=== PATIENT | female | born 2000 | race Caucasian/White ===

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

== ENCOUNTER → 2018-01-05 | Outpatient (CLI) | payer OTHER | END | disposition home or self-care (01) | LOC: PPH VACUNA 14:29 | DX: Z23 Encounter for immunization (principal) ==

== ENCOUNTER → 2018-01-17 06:58 | Outpatient (CLI) | payer OTHER | END | disposition home or self-care (01) | LOC: LAB 06:58 | DX: E55.9 Vitamin D deficiency, unspecified (principal); B27.00 Gammaherpesviral mononucleosis without complication; G44.221 Chronic tension-type headache, intractable; D69.6 Thrombocytopenia, unspecified; I73.00 Raynaud's syndrome without gangrene; R42 Dizziness and giddiness; M35.9 Systemic involvement of connective tissue, unspecified ==

== ENCOUNTER 2018-01-23 10:18 | Outpatient (CLI) | payer OTHER | END 2018-01-23 14:06 | disposition home or self-care (01) | LOC: NUCLEAR 10:18 | DX: I73.00 Raynaud's syndrome without gangrene (principal) ==

== ENCOUNTER 2018-01-30 00:40 | Emergency (ER) | payer OTHER ==
[~2018-01-30] VITALS: Ht 160 cm; Wt 61.2 kg
[2018-01-30] MEDS ORDERED: CEFUROXIME500 MG PO (04:45)
== END 2018-01-30 04:47 | disposition home or self-care (01) ==
LOC: ER 00:40
DX: R53.81 Other malaise (principal); N39.0 Urinary tract infection, site not specified

== ENCOUNTER 2018-07-27 15:56 | Emergency (ER) | payer OTHER ==
[~2018-07-27] VITALS: Ht 157.5 cm; Wt 61.2 kg
[~2018-07-27 15:56] MED LIST changes: +CEFUROXIME500 MG PO
[2018-07-27] MEDS ORDERED: ZYRTEC10 MG PO (19:13)
[2018-07-27] MEDS ORDERED: KETO10TA2 PO (19:13)
[2018-07-27] MEDS ORDERED: FLONASE ALLERG9.9 ML NASAL (19:13)
[2018-07-27] MEDS ORDERED: ZITHROMAX TRI-500 MG PO (19:13)
== END 2018-07-27 19:49 | disposition home or self-care (01) ==
LOC: ER 15:56
DX: J32.8 Other chronic sinusitis (principal); R51 Headache

== ENCOUNTER 2018-09-04 00:31 | Emergency (ER) | payer OTHER ==
[~2018-09-04] VITALS: Ht 160 cm; Wt 61.2 kg
[~2018-09-04 00:31] MED LIST changes: +FLONASE ALLERG9.9 ML NASAL; +KETO10TA2 PO; +ZITHROMAX TRI-500 MG PO; +ZYRTEC10 MG PO
[2018-09-04] MEDS ORDERED: DUI500 PO (03:24)
[2018-09-04] MEDS ORDERED: KETO10TA2 PO (03:24)
== END 2018-09-04 03:30 ==
LOC: ER 00:31
DX: S01.01XA Laceration without foreign body of scalp, initial encounter (principal); W01.0XXA Fall on same level from slipping, tripping and stumbling without subsequent striking against object, initial encounter; Y93.89 Activity, other specified; Y92.89 Other specified places as the place of occurrence of the external cause; Y99.8 Other external cause status

== ENCOUNTER → 2018-11-28 | Emergency (ER) | payer OTHER ==
[~2018-11-28] VITALS: Ht 160 cm; Wt 56.7 kg
[~2018-11-28] MED LIST changes: +DUI500 PO
== END | disposition home or self-care (01) ==
LOC: ER 14:27
DX: B34.9 Viral infection, unspecified (principal); B96.0 Mycoplasma pneumoniae [M. pneumoniae] as the cause of diseases classified elsewhere; Z33.1 Pregnant state, incidental

== ENCOUNTER 2018-12-12 07:57 | Outpatient (CLI) | payer OTHER | END 2018-12-12 08:03 | disposition home or self-care (01) | LOC: LAB 07:57 | DX: J20.0 Acute bronchitis due to Mycoplasma pneumoniae (principal); Z11.4 Encounter for screening for human immunodeficiency virus [HIV]; B96.89 Other specified bacterial agents as the cause of diseases classified elsewhere; R52 Pain, unspecified; R51 Headache; J10.00 Influenza due to other identified influenza virus with unspecified type of pneumonia; Z13.0 Encounter for screening for diseases of the blood and blood-forming organs and certain disorders involving the immune mechanism ==

== ENCOUNTER 2019-02-06 13:35 | Outpatient (CLI) | payer OTHER | END 2019-02-06 13:50 | disposition home or self-care (01) | LOC: LAB 13:35 | DX: O09.892 Supervision of other high risk pregnancies, second trimester (principal); Z31.430 Encounter of female for testing for genetic disease carrier status for procreative management; Z31.5 Encounter for procreative genetic counseling ==

== ENCOUNTER 2019-02-14 08:07 | Outpatient (CLI) | payer OTHER | END 2019-02-14 08:12 | disposition home or self-care (01) | LOC: LAB 08:07 | DX: D68.8 Other specified coagulation defects (principal); O09.892 Supervision of other high risk pregnancies, second trimester; Z31.430 Encounter of female for testing for genetic disease carrier status for procreative management; Z31.5 Encounter for procreative genetic counseling; D69.6 Thrombocytopenia, unspecified ==

== ENCOUNTER → 2019-03-09 | Outpatient (CLI) | payer OTHER | END | disposition home or self-care (01) | LOC: SONOGRAMA 11:07 | DX: Z34.02 Encounter for supervision of normal first pregnancy, second trimester (principal); Z3A.19 19 weeks gestation of pregnancy ==

== ENCOUNTER 2019-04-17 07:41 | Outpatient (CLI) | payer OTHER | END 2019-04-17 07:48 | disposition home or self-care (01) | LOC: LAB 07:41 | DX: J20.8 Acute bronchitis due to other specified organisms (principal); R51 Headache; J10.89 Influenza due to other identified influenza virus with other manifestations; Z34.02 Encounter for supervision of normal first pregnancy, second trimester ==

== ENCOUNTER 2019-05-07 16:21 | Inpatient (IN) | payer OTHER ==
[~2019-05-07] VITALS: Ht 165.1 cm; Wt 67.6 kg
[2019-05-07] MEDS ORDERED: PRENATAL TABLE1 EAC1 PO (17:45)
== END 2019-05-10 07:25 | disposition home or self-care (01) | DRG 833 ==
LOC: LDR 16:21 → OB/GYN 05-09 08:20
PROVIDERS: ADMIT Obstetrics & Gynecology
PROC: B030ZZZ Magnetic Resonance Imaging (MRI) of Brain (ICD-10-PCS; principal; 2019-05-07)
PROC: BY4FZZZ Ultrasonography of Third Trimester, Single Fetus (ICD-10-PCS; 2019-05-07)
PROC: B246ZZZ Ultrasonography of Right and Left Heart (ICD-10-PCS; 2019-05-07)
PROC: B345ZZZ Ultrasonography of Bilateral Common Carotid Arteries (ICD-10-PCS; 2019-05-07)
PROC: 4A033R1 Measurement of Arterial Saturation, Peripheral, Percutaneous Approach (ICD-10-PCS; 2019-05-07)
PROC: 4A1HXCZ Monitoring of Products of Conception, Cardiac Rate, External Approach (ICD-10-PCS; 2019-05-07)
DX: O99.113 Other diseases of the blood and blood-forming organs and certain disorders involving the immune mechanism complicating pregnancy, third trimester (principal); D69.49 Other primary thrombocytopenia; R53.1 Weakness; R20.2 Paresthesia of skin; E16.1 Other hypoglycemia; Z34.03 Encounter for supervision of normal first pregnancy, third trimester
CPT/HCPCS: 70551

== ENCOUNTER → 2019-06-18 10:21 | Outpatient (CLI) | payer OTHER ==
[~2019-06-18 10:21] MED LIST changes: +PRENATAL TABLE1 EAC1 PO
== END | disposition home or self-care (01) ==
LOC: LAB 10:21
DX: O09.893 Supervision of other high risk pregnancies, third trimester (principal); R51 Headache; J20.0 Acute bronchitis due to Mycoplasma pneumoniae; J10.89 Influenza due to other identified influenza virus with other manifestations

== ENCOUNTER 2019-07-23 05:36 | Inpatient (IN) | payer OTHER ==
[~2019-07-23] VITALS: Ht 160 cm; Wt 68.5 kg
== END 2019-07-25 10:29 | disposition home or self-care (01) | DRG 807 ==
LOC: OB/GYN 05:36 → LDR 05:36 → OB/GYN 16:15
PROVIDERS: ADMIT Obstetrics & Gynecology
PROC: 10E0XZZ Delivery of Products of Conception, External Approach (ICD-10-PCS; principal; 2019-07-23)
PROC: 10907ZC Drainage of Amniotic Fluid, Therapeutic from Products of Conception, Via Natural or Artificial Opening (ICD-10-PCS; 2019-07-23)
PROC: 3E033VJ Introduction of Other Hormone into Peripheral Vein, Percutaneous Approach (ICD-10-PCS; 2019-07-23)
PROC: 4A1HXCZ Monitoring of Products of Conception, Cardiac Rate, External Approach (ICD-10-PCS; 2019-07-23)
DX: O80 Encounter for full-term uncomplicated delivery (principal); Z37.0 Single live birth; Z3A.39 39 weeks gestation of pregnancy

== ENCOUNTER 2019-11-08 12:55 | Outpatient (CLI) | payer OTHER | END 2019-11-08 13:04 | disposition home or self-care (01) | LOC: LAB 12:55 | DX: Z02.1 Encounter for pre-employment examination (principal) ==

== ENCOUNTER 2020-05-13 20:51 | Emergency (ER) | payer OTHER ==
[~2020-05-13] VITALS: Ht 157.5 cm; Wt 60.8 kg
== END 2020-05-13 22:57 | disposition home or self-care (01) ==
LOC: ER 20:51
DX: N39.0 Urinary tract infection, site not specified (principal); B96.29 Other Escherichia coli [E. coli] as the cause of diseases classified elsewhere

== ENCOUNTER → 2021-01-16 | Emergency (ER) | payer OTHER ==
[~2021-01-16] VITALS: Ht 157.5 cm; Wt 63.5 kg
[~2021-01-16] MED LIST changes: +ZITHROMAX500 MG PO
== END | disposition home or self-care (01) ==
LOC: ER 13:22
DX: B34.9 Viral infection, unspecified (principal); B96.0 Mycoplasma pneumoniae [M. pneumoniae] as the cause of diseases classified elsewhere; Z11.52 Encounter for screening for COVID-19

== ENCOUNTER 2021-03-05 08:00 | Outpatient (CLI) | payer OTHER | END 2021-03-05 08:30 | disposition home or self-care (01) | LOC: PPH VACUNA 08:00 | DX: Z23 Encounter for immunization (principal) ==

== ENCOUNTER 2021-03-27 08:00 | Outpatient (CLI) | payer OTHER | END 2021-03-27 08:30 | disposition home or self-care (01) | LOC: PPH VACUNA 08:00 | DX: Z23 Encounter for immunization (principal) ==

== ENCOUNTER 2021-05-20 12:49 | Outpatient (CLI) | payer OTHER | END 2021-05-20 13:00 | disposition home or self-care (01) | LOC: LAB 12:49 | PROVIDERS: ATTEND General Practice | DX: K75.89 Other specified inflammatory liver diseases (principal) ==

== ENCOUNTER 2021-07-30 04:59 | Emergency (ER) | payer OTHER ==
[~2021-07-30] VITALS: Ht 160 cm; Wt 65.8 kg
[2021-07-30] MEDS ORDERED: ZITHROMAX500 MG PO (08:16)
[2021-07-30] MEDS ORDERED: ORASEP SPRAY30 ML MM (08:16)
[2021-07-30] MEDS ORDERED: ZYNCOF 20-400120 ML PO ×2 (08:17)
== END 2021-07-30 08:26 ==
LOC: ER 04:59
DX: R50.9 Fever, unspecified (principal); J06.9 Acute upper respiratory infection, unspecified

== ENCOUNTER 2021-08-16 08:01 | Emergency (ER) | payer OTHER ==
[~2021-08-16] VITALS: Ht 160 cm; Wt 65.8 kg
[~2021-08-16 08:01] MED LIST changes: +ORASEP SPRAY30 ML MM; +ZYNCOF 20-400120 ML PO
== END 2021-08-16 09:04 | disposition home or self-care (01) ==
LOC: ER 08:01
DX: K52.89 Other specified noninfective gastroenteritis and colitis (principal)

== ENCOUNTER 2021-09-21 15:42 | Emergency (ER) | payer OTHER ==
[~2021-09-21] VITALS: Ht 160 cm; Wt 63.5 kg
[2021-09-21] MEDS ORDERED: POLYMYXIN B-TMP10 ML OP (17:53)
== END 2021-09-21 18:00 | disposition home or self-care (01) ==
LOC: ER 15:42
DX: H10.31 Unspecified acute conjunctivitis, right eye (principal)

== ENCOUNTER 2021-09-28 21:31 | Emergency (ER) | payer OTHER ==
[~2021-09-28] VITALS: Ht 157.5 cm; Wt 63.5 kg
[~2021-09-28 21:31] MED LIST changes: +POLYMYXIN B-TMP10 ML OP
[2021-09-29] MEDS ORDERED: GARAMYCIN OPHT3.5 GM OP (01:09)
== END 2021-09-29 01:54 ==
LOC: ER 21:31
DX: H00.021 Hordeolum internum right upper eyelid (principal); H10.31 Unspecified acute conjunctivitis, right eye

== ENCOUNTER 2021-10-13 08:00 | Outpatient (CLI) | payer OTHER ==
[~2021-10-13 08:00] MED LIST changes: +GARAMYCIN OPHT3.5 GM OP
== END 2021-10-13 08:30 | disposition home or self-care (01) ==
LOC: PPH VACUNA 08:00
PROVIDERS: ATTEND Emergency Medicine Pediatric Emergency Medicine
DX: Z23 Encounter for immunization (principal)

== ENCOUNTER 2021-10-29 14:17 | Outpatient (CLI) | payer OTHER | END 2021-10-29 14:25 | disposition home or self-care (01) | LOC: LAB 14:17 | PROVIDERS: ATTEND Emergency Medicine | DX: B01.9 Varicella without complication (principal) ==

== ENCOUNTER → 2022-11-16 10:13 | Outpatient (CLI) | payer OTHER | END | disposition home or self-care (01) | LOC: LAB 10:13 | PROVIDERS: ATTEND General Practice | DX: Z11.3 Encounter for screening for infections with a predominantly sexual mode of transmission (principal); Z11.59 Encounter for screening for other viral diseases ==

== ENCOUNTER 2023-04-22 23:30 | Emergency (ER) | payer OTHER ==
[~2023-04-22] VITALS: Ht 160 cm; Wt 63.5 kg
[2023-04-23] MEDS ORDERED: DICLOFENAC POTA50 MG PO (02:59)
[2023-04-23] MEDS ORDERED: AMOX-CLAV 875-1 EACH PO (02:59)
[2023-04-23] MEDS ORDERED: INTESTINEX680 M1 PO (02:59)
== END 2023-04-23 03:04 | disposition home or self-care (01) ==
LOC: ER 23:30
DX: J02.9 Acute pharyngitis, unspecified (principal); J06.9 Acute upper respiratory infection, unspecified; Z20.822 Contact with and (suspected) exposure to COVID-19

== ENCOUNTER 2023-08-09 02:00 | Outpatient (CLI) | payer OTHER ==
[~2023-08-09 02:00] MED LIST changes: +AMOX-CLAV 875-1 EACH PO; +DICLOFENAC POTA50 MG PO; +INTESTINEX680 M1 PO
== END 2023-08-09 02:10 | disposition home or self-care (01) ==
LOC: PPH VACUNA 02:00
PROVIDERS: ATTEND Emergency Medicine Pediatric Emergency Medicine
DX: Z23 Encounter for immunization (principal)
CPT/HCPCS: 90686; G0008

== ENCOUNTER 2023-12-13 14:44 | Emergency (ER) | payer OTHER ==
[~2023-12-13] VITALS: Ht 160 cm; Wt 63.5 kg
[2023-12-13] MEDS ORDERED: POLYMYXIN B/TMP10 ML OP (15:52)
== END 2023-12-13 16:19 | disposition home or self-care (01) ==
LOC: ER 14:44
DX: B30.1 Conjunctivitis due to adenovirus (principal)

== ENCOUNTER 2024-05-23 00:31 | Emergency (ER) | payer OTHER ==
[~2024-05-23] VITALS: Ht 160 cm; Wt 61.2 kg
[~2024-05-23 00:31] MED LIST changes: +POLYMYXIN B/TMP10 ML OP
[2024-05-23] MEDS ORDERED: PRENA1 TRUE CO1 EACH (00:34)
[2024-05-23 01:52] LABS: PH,URINE 5.5 (5.0-8.0); URINE APPEARANCE Clear; URINE BILIRRUBIN Negative (NEGATIVE); URINE BLOOD Moderate; URINE COLOR Dark Yellow; URINE GLUCOSE Negative (NEGATIVE); URINE KETONE Trace (NEGATIVE); URINE LEUKOCYTE Negative; URINE NITRATE Negative; URINE PROTEIN Negative (NEGATIVE)
[2024-05-23 01:55] LABS: URINE BACTERIA 443.5 uL (0.0-1933); URINE EPITHELIAL CELLS 29.2 uL (0.0-38.8); URINE WBC 13.2 uL (0.0-23.2)
== END 2024-05-23 04:15 ==
LOC: ER 00:31
PROVIDERS: General Practice
DX: O20.8 Other hemorrhage in early pregnancy (principal); Z3A.08 8 weeks gestation of pregnancy

== ENCOUNTER 2024-05-23 13:36 | Outpatient (CLI) | payer OTHER ==
[~2024-05-23 13:36] MED LIST changes: +PRENA1 TRUE CO1 EACH
[2024-05-23 14:23] LABS: HEMATOCRIT 38.7 % (36.0-45.00); HEMOGLOBIN 13.2 g/dL (12.0-15.00); MEAN CELL VOLUME 85.1 fL (80.00-100.00); MEAN CORPUSCULAR HGB CONC 34.1 g/dl (32.0-36.0); RED BLOOD COUNT 4.55 M/uL (4.00-6.00); RED CELL DISTRIBUTION WIDTH 14.2 % (11.5-14.5)
[2024-05-23 14:30] LABS: PLATELET COUNT 118 K/uL (150-450)
[2024-05-23 15:05] LABS: ALBUMIN 4.3 gm/dL (3.4-5.0); BILIRUBIN TOTAL 1.08 mg/dL (0.3-1.2); CALCIUM 9.3 mg/dL (8.5-10.1); CREATININE SERUM 0.65 mg/dL (0.55-1.02); GFR 110.18; GLOBULINA 3.6 G/DL (2.4-3.5); POTASSIUM 3.67 mEq/L (3.5-5.1); T4 FREE 1.12 NG/ML (0.76-1.46); TOTAL PROTEIN 7.9 gm/dL (6.4-8.2); TSH 1.25 uIU/mL (0.358-3.74)
[2024-05-23 15:13] LABS: PH,URINE 6.5 (5.0-8.0); URINE APPEARANCE Clear; URINE BILIRRUBIN Negative (NEGATIVE); URINE BLOOD Small; URINE COLOR Yellow; URINE GLUCOSE Negative (NEGATIVE); URINE LEUKOCYTE Negative; URINE NITRATE Negative; URINE PROTEIN Negative (NEGATIVE)
[2024-05-23 15:16] LABS: URINE BACTERIA 119.6 uL (0.0-1933); URINE EPITHELIAL CELLS 11.9 uL (0.0-38.8); URINE RBC 18.4 uL (0.0-20.8)
[2024-05-23 15:58] LABS: RH POSITIVE
[2024-05-23 16:02] LABS: URINE KETONE 40 (NEGATIVE)
[2024-05-24 15:10] LABS: RAPID PLASMA REAGIN NONREACTIVE BY RPR (NONREACTIVE)
== END 2024-05-23 13:52 | disposition home or self-care (01) ==
LOC: LAB 13:36
PROVIDERS: ATTEND Obstetrics & Gynecology
DX: Z34.00 Encounter for supervision of normal first pregnancy, unspecified trimester (principal); Z34.01 Encounter for supervision of normal first pregnancy, first trimester

== ENCOUNTER 2024-05-31 14:20 | Outpatient (CLI) | payer OTHER | END 2024-05-31 14:25 | disposition home or self-care (01) | LOC: LAB 14:20 | PROVIDERS: ATTEND Obstetrics & Gynecology | DX: Z34.01 Encounter for supervision of normal first pregnancy, first trimester (principal) ==

== ENCOUNTER 2024-06-27 14:27 | Outpatient (CLI) | payer OTHER | END 2024-06-27 14:30 | disposition home or self-care (01) | LOC: LAB 14:27 | PROVIDERS: ATTEND Obstetrics & Gynecology | DX: Z34.01 Encounter for supervision of normal first pregnancy, first trimester (principal) ==

== ENCOUNTER 2024-07-17 08:00 | Outpatient (CLI) | payer OTHER | END 2024-07-17 08:03 | disposition home or self-care (01) | LOC: LAB 08:00 | PROVIDERS: ATTEND Obstetrics & Gynecology | DX: Z34.01 Encounter for supervision of normal first pregnancy, first trimester (principal) ==

== ENCOUNTER 2024-07-19 13:00 | Emergency (ER) | payer OTHER ==
[~2024-07-19] VITALS: Ht 160 cm; Wt 59.0 kg
[2024-07-19] MEDS ORDERED: 0.9 % SODIUM CHLORIDE 1,000 ML IV ONE (14:30)
[2024-07-19] MEDS ORDERED: FAMOTIDINE/PF 20 MG/2 ML VIAL IV ONE (14:30)
[2024-07-19] MEDS ORDERED: ONDANSETRON HCL 2 MG/ML VIAL IV ONE (14:30)
[2024-07-19 15:55] LABS: URINE APPEARANCE Turbid; URINE BILIRRUBIN Negative (NEGATIVE); URINE BLOOD Negative; URINE COLOR Yellow; URINE GLUCOSE Negative (NEGATIVE); URINE KETONE 15 (NEGATIVE); URINE LEUKOCYTE Trace; URINE NITRATE Positive; URINE PROTEIN Trace (NEGATIVE)
[2024-07-19 15:56] LABS: URINE EPITHELIAL CELLS 105.2 uL (0.0-38.8); URINE RBC 10.2 uL (0.0-20.8); URINE WBC 53.6 uL (0.0-23.2)
[2024-07-19 15:58] LABS: HEMATOCRIT 40.9 % (36.0-45.00); HEMOGLOBIN 13.9 g/dL (12.0-15.00); MEAN CORPUSCULAR HEMOGLOBIN 29.3 pg (27.00-32.0); RED BLOOD COUNT 4.76 M/uL (4.00-6.00); RED CELL DISTRIBUTION WIDTH 13.9 % (11.5-14.5)
[2024-07-19 15:59] LABS: PLATELET COUNT 129 K/uL (150-450)
[2024-07-19 16:15] LABS: URINE BACTERIA > 9821.5 uL (0.0-1933)
[2024-07-19 16:35] LABS: ALBUMIN 4.1 gm/dL (3.4-5.0); BILIRUBIN TOTAL 0.78 mg/dL (0.3-1.2); CALCIUM 9.6 mg/dL (8.5-10.1); CREATININE SERUM 0.69 mg/dL (0.55-1.02); GFR 102.84; GLOBULINA 3.8 G/DL (2.4-3.5); POTASSIUM 4.1 mEq/L (3.5-5.1); TOTAL PROTEIN 7.9 gm/dL (6.4-8.2)
[2024-07-19] MEDS ORDERED: MACROBID 100 M100 MG PO (18:04)
[2024-07-19] MEDS ORDERED: PEPCID AC20 MG PO (18:04)
== END 2024-07-19 19:07 ==
LOC: ER 13:02
PROVIDERS: Nurse Practitioner Family
DX: N39.0 Urinary tract infection, site not specified (principal); K92.89 Other specified diseases of the digestive system; R10.13 Epigastric pain; R11.2 Nausea with vomiting, unspecified; O23.30 Infections of other parts of urinary tract in pregnancy, unspecified trimester; B96.29 Other Escherichia coli [E. coli] as the cause of diseases classified elsewhere

== ENCOUNTER 2024-08-03 16:45 | Outpatient (CLI) | payer OTHER ==
[~2024-08-03 16:45] MED LIST changes: +MACROBID 100 M100 MG PO; +PEPCID AC20 MG PO
[2024-08-03 17:11] LABS: HEMOGLOBIN 13.2 g/dL (12.0-15.00); MEAN CELL VOLUME 84.6 fL (80.00-100.00); MEAN CORPUSCULAR HEMOGLOBIN 29.3 pg (27.00-32.0); MEAN CORPUSCULAR HGB CONC 34.6 g/dl (32.0-36.0); RED BLOOD COUNT 4.49 M/uL (4.00-6.00); RED CELL DISTRIBUTION WIDTH 14.2 % (11.5-14.5)
[2024-08-03 17:12] LABS: PH,URINE 5.5 (5.0-8.0); URINE APPEARANCE Clear; URINE BILIRRUBIN Negative (NEGATIVE); URINE BLOOD Negative; URINE COLOR Yellow; URINE GLUCOSE Negative (NEGATIVE); URINE KETONE Negative (NEGATIVE); URINE LEUKOCYTE Negative; URINE NITRATE Negative; URINE PROTEIN Negative (NEGATIVE); URINE UROBILINOGEN 0.2 E.U./dl
[2024-08-03 17:15] LABS: URINE BACTERIA 971.4 uL (0.0-1933); URINE EPITHELIAL CELLS 30.9 uL (0.0-38.8); URINE RBC 8.3 uL (0.0-20.8); URINE WBC 13.7 uL (0.0-23.2)
[2024-08-03 17:18] LABS: PLATELET COUNT 124 K/uL (150-450)
[2024-08-03 17:42] LABS: BILIRUBIN TOTAL 0.3 mg/dL (0.3-1.2); CALCIUM 9.1 mg/dL (8.5-10.1); CREATININE SERUM 0.72 mg/dL (0.55-1.02); GFR 97.91; GLOBULINA 3.4 G/DL (2.4-3.5); POTASSIUM 3.69 mEq/L (3.5-5.1); T4 FREE 0.98 NG/ML (0.76-1.46); TOTAL PROTEIN 7.4 gm/dL (6.4-8.2); TSH 0.502 uIU/mL (0.358-3.74)
[2024-08-03 17:59] LABS: RH POSITIVE
[2024-08-06 15:42] LABS: RAPID PLASMA REAGIN NONREACTIVE BY RPR (NONREACTIVE)
[2024-08-08 15:04] LABS: RUBELLA IGG 1.19 index (Immune >0.99); hav igm Negative (Negative); hcv Non Reactive (Non Reactive); hep b c Negative (Negative); hep b s ag Negative (Negative)
[2024-08-09 08:09] LABS: RUBELLA IGM <20.0 AU/mL (0.0-19.9)
[2024-08-09 18:10] LABS: VARICELLA ZOSTER VIRUS IGM < 0.91 index (0.00-0.90)
== END 2024-08-03 16:46 | disposition home or self-care (01) ==
LOC: LAB 16:45
PROVIDERS: ATTEND Obstetrics & Gynecology
DX: Z34.00 Encounter for supervision of normal first pregnancy, unspecified trimester (principal); Z34.01 Encounter for supervision of normal first pregnancy, first trimester

== ENCOUNTER 2024-08-10 23:07 | Emergency (ER) | payer OTHER ==
[~2024-08-10] VITALS: Ht 160 cm; Wt 63.0 kg
[2024-08-10] MEDS ORDERED: FOLIC ACID20 MG (23:12)
[2024-08-10] MEDS ORDERED: PRENATABS RX T1 EACH (23:12)
[2024-08-11] MEDS ORDERED: ACETAMINOPHEN 500 MG GEL..CAP PO STA (00:46)
[2024-08-11] MEDS ORDERED: FAMOTIDINE/PF 20 MG/2 ML VIAL IV PUSH STA (00:46)
[2024-08-11] MEDS ORDERED: PROMETHAZINE HCL 50 MG/ML AMPUL IM STA (00:46)
[2024-08-11] MEDS ORDERED: 0.9 % SODIUM CHLORIDE 1,000 ML IV ONE (01:00)
[2024-08-11 01:52] LABS: HEMATOCRIT 39.5 % (36.0-45.00); HEMOGLOBIN 13.3 g/dL (12.0-15.00); MEAN CELL VOLUME 85.9 fL (80.00-100.00); MEAN CORPUSCULAR HGB CONC 33.8 g/dl (32.0-36.0)
[2024-08-11 01:59] LABS: URINE APPEARANCE Clear; URINE BILIRRUBIN Negative (NEGATIVE); URINE BLOOD Negative; URINE COLOR Yellow; URINE GLUCOSE Negative (NEGATIVE); URINE LEUKOCYTE Negative; URINE NITRATE Negative; URINE PROTEIN Negative (NEGATIVE)
[2024-08-11 02:00] LABS: PLATELET COUNT 122 K/uL (150-450)
[2024-08-11 02:02] LABS: URINE BACTERIA 307.3 uL (0.0-1933); URINE EPITHELIAL CELLS 27.9 uL (0.0-38.8); URINE WBC 7.4 uL (0.0-23.2)
[2024-08-11 02:11] LABS: ALBUMIN 3.8 gm/dL (3.4-5.0); BILIRUBIN TOTAL 0.65 mg/dL (0.3-1.2); CALCIUM 9.2 mg/dL (8.5-10.1); CREATININE SERUM 0.65 mg/dL (0.55-1.02); GFR 110.18; GLOBULINA 3.8 G/DL (2.4-3.5); POTASSIUM 3.64 mEq/L (3.5-5.1); TOTAL PROTEIN 7.6 gm/dL (6.4-8.2)
[2024-08-11 02:20] LABS: URINE KETONE 40 (NEGATIVE)
[2024-08-11] MEDS ORDERED: ONDANSETRON ODT4 MG PO (05:27)
[2024-08-11] MEDS ORDERED: PEPCID40 MG PO (05:27)
== END 2024-08-11 06:53 | disposition home or self-care (01) ==
LOC: ER 23:07
PROVIDERS: General Practice
DX: O21.8 Other vomiting complicating pregnancy (principal); E86.0 Dehydration; Z3A.10 10 weeks gestation of pregnancy; Z20.822 Contact with and (suspected) exposure to COVID-19

== ENCOUNTER → 2024-09-04 10:08 | Outpatient (CLI) | payer OTHER ==
[~2024-09-04 10:08] MED LIST changes: +FOLIC ACID20 MG; +ONDANSETRON ODT4 MG PO; +PEPCID40 MG PO; +PRENATABS RX T1 EACH
== END | disposition home or self-care (01) ==
LOC: PRENATAL 10:08
PROVIDERS: ATTEND Obstetrics & Gynecology Maternal & Fetal Medicine
DX: O36.80X0 Pregnancy with inconclusive fetal viability, not applicable or unspecified (principal); Z36.82 Encounter for antenatal screening for nuchal translucency; Z36.9 Encounter for antenatal screening, unspecified; Z3A.13 13 weeks gestation of pregnancy

== ENCOUNTER 2024-10-17 15:26 | Outpatient (CLI) | payer OTHER | END 2024-10-17 15:29 | disposition home or self-care (01) | LOC: LAB 15:26 | PROVIDERS: ATTEND General Practice | DX: Z34.02 Encounter for supervision of normal first pregnancy, second trimester (principal) ==

== ENCOUNTER 2024-10-19 08:19 | Outpatient (CLI) | payer OTHER | END 2024-10-19 08:21 | disposition home or self-care (01) | LOC: PRENATAL 08:19 | PROVIDERS: ATTEND Obstetrics & Gynecology Maternal & Fetal Medicine | DX: O44.00 Complete placenta previa NOS or without hemorrhage, unspecified trimester (principal); Z3A.19 19 weeks gestation of pregnancy ==

== ENCOUNTER → 2024-11-11 | Outpatient (CLI) | payer OTHER ==
[~2024-11-11] MED LIST changes: +CEFTRIAXONE SODIUM 1,000 MG VIAL IV ONE; +RINGERS SOLUTION,LACTATED 1,000 ML IV SCH
[2024-11-11 01:28] VITALS: BP 111/71
[2024-11-11 03:16] LABS: HEMATOCRIT 34.1 % (36.0-45.00); HEMOGLOBIN 11.8 g/dL (12.0-15.00); MEAN CELL VOLUME 86.5 fL (80.00-100.00); MEAN CORPUSCULAR HEMOGLOBIN 29.8 pg (27.00-32.0); MEAN CORPUSCULAR HGB CONC 34.5 g/dl (32.0-36.0); RED BLOOD COUNT 3.94 M/uL (4.00-6.00); RED CELL DISTRIBUTION WIDTH 13.8 % (11.5-14.5)
[2024-11-11 03:33] LABS: PLATELET COUNT 104 K/uL (150-450)
[2024-11-11 04:16] LABS: URINE APPEARANCE Cloudy; URINE BILIRRUBIN Negative (NEGATIVE); URINE BLOOD Large; URINE COLOR Yellow; URINE GLUCOSE Negative (NEGATIVE); URINE KETONE 15 (NEGATIVE); URINE LEUKOCYTE Moderate; URINE NITRATE Negative
[2024-11-11 04:19] LABS: URINE BACTERIA 265.5 uL (0.0-1933); URINE EPITHELIAL CELLS 9.1 uL (0.0-38.8); URINE RBC 280.9 uL (0.0-20.8); URINE WBC 851.1 uL (0.0-23.2)
[2024-11-11 04:48] LABS: URINE CAST 0.14 uL (0.0-1.40); URINE PROTEIN 100 (NEGATIVE)
[2024-11-11 07:53] VITALS: BP 99/59
[2024-11-11 08:52] VITALS: BP 99/59
== END | disposition home or self-care (01) ==
LOC: OBS/DEL 02:55
PROVIDERS: ATTEND General Practice
DX: O99.119 Other diseases of the blood and blood-forming organs and certain disorders involving the immune mechanism complicating pregnancy, unspecified trimester (principal); O23.42 Unspecified infection of urinary tract in pregnancy, second trimester; N39.0 Urinary tract infection, site not specified; N20.0 Calculus of kidney; R10.2 Pelvic and perineal pain; Z3A.22 22 weeks gestation of pregnancy

== ENCOUNTER 2024-12-08 10:43 | Outpatient (CLI) | payer OTHER ==
[~2024-12-08 10:43] MED LIST changes: -CEFTRIAXONE SODIUM 1,000 MG VIAL IV ONE; -RINGERS SOLUTION,LACTATED 1,000 ML IV SCH
[2024-12-08 12:26] LABS: HEMATOCRIT 33.8 % (36.0-45.00); HEMOGLOBIN 11.4 g/dL (12.0-15.00); MEAN CELL VOLUME 85.2 fL (80.00-100.00); MEAN CORPUSCULAR HEMOGLOBIN 28.8 pg (27.00-32.0); MEAN CORPUSCULAR HGB CONC 33.8 g/dl (32.0-36.0); RED BLOOD COUNT 3.97 M/uL (4.00-6.00); RED CELL DISTRIBUTION WIDTH 13.2 % (11.5-14.5)
[2024-12-08 12:32] LABS: URINE APPEARANCE Turbid; URINE BILIRRUBIN Negative (NEGATIVE); URINE BLOOD NHT; URINE COLOR Dark Yellow; URINE GLUCOSE Negative (NEGATIVE); URINE LEUKOCYTE Large; URINE NITRATE Negative; URINE PROTEIN 30 (NEGATIVE)
[2024-12-08 12:33] LABS: PLATELET COUNT 127 K/uL (150-450)
[2024-12-08 12:36] LABS: URINE EPITHELIAL CELLS 9.1 uL (0.0-38.8); URINE RBC 7.6 uL (0.0-20.8); URINE WBC 3545.9 uL (0.0-23.2)
[2024-12-08 12:49] LABS: ALBUMIN 2.6 gm/dL (3.4-5.0); BILIRUBIN TOTAL 0.99 mg/dL (0.3-1.2); CALCIUM 8.6 mg/dL (8.5-10.1); CREATININE SERUM 0.58 mg/dL (0.55-1.02); GFR 125.66; GLOBULINA 3.7 G/DL (2.4-3.5); POTASSIUM 3.7 mEq/L (3.5-5.1); TOTAL PROTEIN 6.3 gm/dL (6.4-8.2)
[2024-12-08 12:59] LABS: URINE BACTERIA > 9821.5 uL (0.0-1933); URINE KETONE 40 (NEGATIVE)
[2024-12-08 13:18] LABS: MANUAL PLATELET COUNT 146
== END 2024-12-08 10:49 | disposition home or self-care (01) ==
LOC: LAB 10:43
PROVIDERS: ATTEND General Practice
DX: D69.6 Thrombocytopenia, unspecified (principal); N39.0 Urinary tract infection, site not specified; Z34.01 Encounter for supervision of normal first pregnancy, first trimester; Z34.00 Encounter for supervision of normal first pregnancy, unspecified trimester

== ENCOUNTER 2024-12-11 08:28 | Inpatient (IN) | payer OTHER ==
[~2024-12-11] VITALS: Ht 160 cm; Wt 65.8 kg
[2024-12-11 08:19] VITALS: BP 112/73
[2024-12-11 08:45] VITALS: BP 112/73
[2024-12-11] MEDS ORDERED: ONDANSETRON HCL 2 MG/ML VIAL IV PRN (08:45)
[2024-12-11] MEDS ORDERED: RINGERS SOLUTION,LACTATED 1,000 ML IV SCH (08:45)
[2024-12-11] MEDS ORDERED: FAMOTIDINE/PF 20 MG/2 ML VIAL IV PUSH PRN (08:45)
[2024-12-11] MEDS ORDERED: CEFOXITIN SODIUM 2,000 MG VIAL IV SCH (09:00)
[2024-12-11 09:19] LABS: HEMATOCRIT 30.6 % (36.0-45.00); HEMOGLOBIN 10.6 g/dL (12.0-15.00); MEAN CELL VOLUME 84.5 fL (80.00-100.00); MEAN CORPUSCULAR HEMOGLOBIN 29.4 pg (27.00-32.0); MEAN CORPUSCULAR HGB CONC 34.7 g/dl (32.0-36.0); PLATELET COUNT 137 K/uL (150-450); RED BLOOD COUNT 3.62 M/uL (4.00-6.00); RED CELL DISTRIBUTION WIDTH 13.2 % (11.5-14.5)
[2024-12-11 09:39] LABS: INR 0.96; PARTIAL THROMBOPLASTIN TIME 29.1 SECONDS (22.0-34.0); PROTHROMBIN TIME 10.5 SECONDS (9.0-11.5)
[2024-12-11 09:46] LABS: ALBUMIN 2.2 gm/dL (3.4-5.0); BILIRUBIN TOTAL 0.91 mg/dL (0.3-1.2); CALCIUM 8.4 mg/dL (8.5-10.1); CREATININE SERUM 0.61 mg/dL (0.55-1.02); GFR 118.56; GLOBULINA 3.5 G/DL (2.4-3.5); POTASSIUM 3.84 mEq/L (3.5-5.1); TOTAL PROTEIN 5.7 gm/dL (6.4-8.2)
[2024-12-11] MEDS ORDERED: FOLIC ACID0.4 MG PO (10:32)
[2024-12-11] MEDS ORDERED: PRENATA CHEWAB1 EACH (10:32)
[2024-12-11] MEDS ORDERED: TYLENOL325 MG PO (10:33)
[2024-12-11] MEDS ORDERED: PEPCID AC20 MG PO (10:33)
[2024-12-11] MEDS ORDERED: ACETAMINOPHEN 500 MG GEL..CAP PO PRN (11:45)
[2024-12-11 11:55] VITALS: BP 100/63
[2024-12-11 15:25] VITALS: BP 93/56
[2024-12-11 20:14] VITALS: BP 93/57
[2024-12-11 20:51] VITALS: BP 94/60
[2024-12-12] VITALS: BP 92/63
[2024-12-12 08:36] VITALS: BP 94/60
[2024-12-12 13:09] LABS: BILIRUBIN TOTAL 0.78 mg/dL (0.3-1.2); CALCIUM 8.1 mg/dL (8.5-10.1); CREATININE SERUM 0.47 mg/dL (0.55-1.02); GFR 160.18; GLOBULINA 3.5 G/DL (2.4-3.5); POTASSIUM 3.26 mEq/L (3.5-5.1); TOTAL PROTEIN 5.5 gm/dL (6.4-8.2)
[2024-12-12 16:05] VITALS: BP 98/59
[2024-12-13 00:35] VITALS: BP 98/59
[2024-12-13 08:47] VITALS: BP 94/52
== END 2024-12-13 12:36 | disposition home or self-care (01) | DRG 831 ==
LOC: OBS/DEL 08:28 → LDR 08:58 → OB/GYN 18:56
PROVIDERS: ADMIT General Practice; ATTEND General Practice
PROC: 4A1HXCZ Monitoring of Products of Conception, Cardiac Rate, External Approach (ICD-10-PCS; principal; 2024-12-11)
PROC: BW40ZZZ Ultrasonography of Abdomen (ICD-10-PCS; 2024-12-11)
PROC: BY4CZZZ Ultrasonography of Second Trimester, Single Fetus (ICD-10-PCS; 2024-12-11)
PROC: BU4CZZZ Ultrasonography of Uterus and Ovaries (ICD-10-PCS; 2024-12-11)
DX: O23.02 Infections of kidney in pregnancy, second trimester (principal); O60.02 Preterm labor without delivery, second trimester; O36.8120 Decreased fetal movements, second trimester, not applicable or unspecified; O43.92 Unspecified placental disorder, second trimester; O26.842 Uterine size-date discrepancy, second trimester; Z3A.27 27 weeks gestation of pregnancy

== ENCOUNTER → 2025-01-09 15:17 | Outpatient (CLI) | payer OTHER ==
[~2025-01-09 15:17] MED LIST changes: +FOLIC ACID0.4 MG PO; +PRENATA CHEWAB1 EACH; +TYLENOL325 MG PO
== END | disposition home or self-care (01) ==
LOC: PRENATAL 15:17
PROVIDERS: ATTEND Obstetrics & Gynecology Maternal & Fetal Medicine
DX: O26.849 Uterine size-date discrepancy, unspecified trimester (principal); O36.8199 Decreased fetal movements, unspecified trimester, other fetus; O43.90 Unspecified placental disorder, unspecified trimester; Z3A.31 31 weeks gestation of pregnancy

== ENCOUNTER 2025-02-14 09:56 | Outpatient (CLI) | payer OTHER | END 2025-02-14 09:59 | disposition home or self-care (01) | LOC: PRENATAL 09:56 | PROVIDERS: ATTEND Obstetrics & Gynecology Maternal & Fetal Medicine | DX: O26.849 Uterine size-date discrepancy, unspecified trimester (principal); O36.8199 Decreased fetal movements, unspecified trimester, other fetus; Z3A.35 35 weeks gestation of pregnancy ==

== ENCOUNTER → 2025-02-26 09:49 | Outpatient (CLI) | payer OTHER | END | disposition home or self-care (01) | LOC: LAB 09:49 | PROVIDERS: ATTEND Student in an Organized Health Care Education/Training Program | DX: Z34.03 Encounter for supervision of normal first pregnancy, third trimester (principal); R30.0 Dysuria; Z11.4 Encounter for screening for human immunodeficiency virus [HIV] ==

== ENCOUNTER 2025-03-01 11:48 | Outpatient (CLI) | payer OTHER ==
[2025-03-02] MEDS ORDERED: CEPHALEXIN250 MG PO (04:13)
== END 2025-03-01 12:24 | disposition home or self-care (01) ==
LOC: NST 11:48
PROVIDERS: ATTEND General Practice
DX: Z34.83 Encounter for supervision of other normal pregnancy, third trimester (principal)

== ENCOUNTER 2025-03-02 03:26 | Inpatient (IN) | payer OTHER ==
[2025-03-02] VITALS (10 sets, daily range): BP systolic 103–122; BP diastolic 57–82
[~2025-03-02] VITALS: Ht 160 cm; Wt 66.7 kg
[2025-03-02] MEDS ORDERED: RINGERS SOLUTION,LACTATED 1,000 ML IV SCH (03:45)
[2025-03-02] MEDS ORDERED: AMPICILLIN SODIUM 2,000 MG VIAL IV ONE (03:45)
[2025-03-02] MEDS ORDERED: CEPHALEXIN250 MG PO (04:13)
[2025-03-02 04:28] LABS: BASO % 0.3 % (0.1-1.2); MONO # 0.66 (0.24-0.82)
[2025-03-02 04:30] LABS: CALCIUM 8.8 mg/dL (8.5-10.1); CREATININE SERUM 0.64 mg/dL (0.55-1.02); GFR 112.17; POTASSIUM 3.7 mEq/L (3.5-5.1)
[2025-03-02 04:31] LABS: INR < 0.93; PARTIAL THROMBOPLASTIN TIME 27.6 SECONDS (22.0-34.0); PROTHROMBIN TIME 10.2 SECONDS (9.0-11.5)
[2025-03-02 04:34] LABS: EOS # 0.06 (0.04-0.54); EOS % 0.8 % (0.7-7.0); HEMATOCRIT 33.6 % (34.1-44.9); LYMPH # 2.35 (1.18-3.74); LYMPH % 29.9 % (19.3-53.1); MEAN CORPUSCULAR HEMOGLOBIN 25.8 pg (25.6-32.2); MONO % 8.4 % (4.7-12.5); NEUT # 4.73 (1.56-6.13); NEUT % 60.1 % (34.0-71.1); PLATELET COUNT 155 K/uL (163-369); RED BLOOD COUNT 4.26 M/uL (3.93-5.22)
[2025-03-02] MEDS ORDERED: OXYTOCIN 500 ML IV SCH (07:30)
[2025-03-02] MEDS ORDERED: AMPICILLIN SODIUM 1,000 MG VIAL IV SCH (08:00)
[2025-03-02] MEDS ORDERED: ERYTHROMYCIN BASE OPHT 1GM EACH TUBE OP ONE (16:03)
[2025-03-02] MEDS ORDERED: OXYTOCIN 20 UNITS/1000ML RL PIGGYBAG IV ONE (16:03)
[2025-03-02] MEDS ORDERED: LIDOCAINE HCL 1% 10ML VIAL ONE (16:03)
[2025-03-02] MEDS ORDERED: CHLORHEXIDINE GLUCONATE 120 ML BOTTLE TOP ONE (16:03)
[2025-03-02] MEDS ORDERED: OXYTOCIN 1,000 ML IV SCH (17:00)
[2025-03-02] MEDS ORDERED: CHLORHEXIDINE GLUCONATE 120 ML BOTTLE TOP SCH (17:00)
[2025-03-02] MEDS ORDERED: DOCUSATE SODIUM 100MG CAP PO SCH (17:00)
[2025-03-02] MEDS ORDERED: IBUprofen 400 MG TABLET PO SCH (17:02)
[2025-03-03 01:02] VITALS: BP 115/73
[2025-03-03 08:33] VITALS: BP 109/73
[2025-03-03] MEDS ORDERED: IBUprofen 800 MG TABLET PO SCH (09:00)
[2025-03-03 09:37] LABS: BASO % 0.3 % (0.1-1.2); EOS # 0.06 (0.04-0.54); EOS % 0.5 % (0.7-7.0); HEMATOCRIT 33.8 % (34.1-44.9); HEMOGLOBIN 11.1 g/dL (11.2-15.7); LYMPH # 2.24 (1.18-3.74); LYMPH % 19.8 % (19.3-53.1); MEAN CORPUSCULAR HEMOGLOBIN 26.3 pg (25.6-32.2); MONO # 0.84 (0.24-0.82); MONO % 7.4 % (4.7-12.5); NEUT # 8.11 (1.56-6.13); NEUT % 71.5 % (34.0-71.1); PLATELET COUNT 143 K/uL (163-369); RED BLOOD COUNT 4.22 M/uL (3.93-5.22); RED CELL DISTRIBUTION WIDTH 14.1 % (11.6-14.4)
[2025-03-03] MEDS ORDERED: BENZOCAINE/MENTHOL 90 ML BOTTLE TOP SCH (13:00)
[2025-03-03 15:54] VITALS: BP 111/72
[2025-03-04 00:30] VITALS: BP 106/68
[2025-03-04 08:00] VITALS: BP 122/80
== END 2025-03-04 12:04 | disposition home or self-care (01) | DRG 806 ==
LOC: LDR 03:26 → OB/GYN 03:26
PROVIDERS: Obstetrics & Gynecology; ADMIT General Practice; ATTEND General Practice
PROC: 10E0XZZ Delivery of Products of Conception, External Approach (ICD-10-PCS; principal; 2025-03-02)
PROC: 4A1HXCZ Monitoring of Products of Conception, Cardiac Rate, External Approach (ICD-10-PCS; 2025-03-02)
DX: O36.5930 Maternal care for other known or suspected poor fetal growth, third trimester, not applicable or unspecified (principal); O99.12 Other diseases of the blood and blood-forming organs and certain disorders involving the immune mechanism complicating childbirth; Z37.0 Single live birth; D69.6 Thrombocytopenia, unspecified; Z3A.38 38 weeks gestation of pregnancy